=== PATIENT | male | born 1970 | race Caucasian/White ===

== ENCOUNTER 2017-01-30 12:36 | Emergency (ER) | payer MEDICAID ==
[2017-01-30] MEDS ORDERED: CIPROFLOXACIN 250 MG TABLET PO STA (12:56)
[2017-01-30] MEDS ORDERED: CIPROFLOXACIN 250 MG TABLET PO ONE (13:00)
== END 2017-01-30 13:18 | disposition home or self-care (01) ==
DX: L97.319 Non-pressure chronic ulcer of right ankle with unspecified severity (principal); L97.519 Non-pressure chronic ulcer of other part of right foot with unspecified severity; F17.200 Nicotine dependence, unspecified, uncomplicated
CPT/HCPCS: 87070; 87077; 87181; 87205; 99283; A9270

== ENCOUNTER 2017-02-01 23:40 | Emergency (ER) | payer MEDICAID ==
[2017-02-02] MEDS ORDERED: MUPIROCIN 2% OINT 1 GM TOP STA (01:07)
[2017-02-02] MEDS ORDERED: HYDROcod/ACETAM 5/325 MG TABLET PO STA (01:07)
[2017-02-02] MEDS ORDERED: CEPHALEXIN 250 MG CAPSULE PO STA (01:07)
[2017-02-02] MEDS ORDERED: HYDROcod/ACET 5/325 Prepack 6 PO ONE ×2 (01:08→01:10)
[2017-02-02] MEDS ORDERED: CEPHALEXIN 250 MG CAPSULE PO ONE (01:10)
== END 2017-02-02 02:01 | disposition home or self-care (01) ==
DX: L03.115 Cellulitis of right lower limb (principal); L97.511 Non-pressure chronic ulcer of other part of right foot limited to breakdown of skin; F17.200 Nicotine dependence, unspecified, uncomplicated
CPT/HCPCS: 99283; A9270

== ENCOUNTER 2017-02-24 13:02 | Outpatient (CLI) | payer MEDICAID | END 2017-02-24 13:03 | disposition short-term general hospital (02) | DX: K92.0 Hematemesis (principal); K62.5 Hemorrhage of anus and rectum; R10.9 Unspecified abdominal pain; R53.1 Weakness | CPT/HCPCS: A0170; A0425; A0427 ==

== ENCOUNTER 2017-03-06 08:00 | Outpatient (CLI) | payer MEDICAID | END 2017-03-06 08:01 | DX: I82.621 Acute embolism and thrombosis of deep veins of right upper extremity (principal); D62 Acute posthemorrhagic anemia ==

== ENCOUNTER 2017-03-11 08:00 | Outpatient (CLI) | payer MEDICAID | END 2017-03-11 08:01 | disposition home or self-care (01) | DX: I82.90 Acute embolism and thrombosis of unspecified vein (principal); Z79.01 Long term (current) use of anticoagulants ==

== ENCOUNTER 2017-03-13 15:02 | Outpatient (CLI) | payer MEDICAID | END 2017-03-13 15:03 | disposition home or self-care (01) | DX: I82.90 Acute embolism and thrombosis of unspecified vein (principal); Z79.01 Long term (current) use of anticoagulants ==

== ENCOUNTER 2017-03-18 11:54 | Outpatient (CLI) | payer MEDICAID | END 2017-03-18 11:55 | disposition home or self-care (01) | DX: I82.90 Acute embolism and thrombosis of unspecified vein (principal); Z79.01 Long term (current) use of anticoagulants ==

== ENCOUNTER 2017-03-20 15:20 | Outpatient (CLI) | payer MEDICAID | END 2017-03-20 15:21 | disposition home or self-care (01) | DX: I82.90 Acute embolism and thrombosis of unspecified vein (principal); Z79.01 Long term (current) use of anticoagulants ==

== ENCOUNTER 2017-03-25 12:42 | Outpatient (CLI) | payer MEDICAID | END 2017-03-25 12:43 | disposition home or self-care (01) | LOC: LAB.S 12:42 | PROVIDERS: ATTEND Nurse Practitioner Family | DX: I82.90 Acute embolism and thrombosis of unspecified vein (principal); Z79.01 Long term (current) use of anticoagulants | CPT/HCPCS: 85610 ==

== ENCOUNTER 2017-03-29 14:40 | Outpatient (CLI) | payer MEDICAID | END 2017-03-29 14:41 | disposition home or self-care (01) | LOC: LAB.F 14:40 | PROVIDERS: ATTEND Nurse Practitioner Family | DX: I82.90 Acute embolism and thrombosis of unspecified vein (principal); Z79.01 Long term (current) use of anticoagulants | CPT/HCPCS: 85610 ==

== ENCOUNTER 2017-04-02 12:32 | Outpatient (CLI) | payer MEDICAID | END 2017-04-02 12:33 | disposition home or self-care (01) | LOC: LAB.F 12:32 | PROVIDERS: ATTEND Nurse Practitioner Family | DX: I82.90 Acute embolism and thrombosis of unspecified vein (principal) | CPT/HCPCS: 85610 ==

== ENCOUNTER 2017-04-12 14:25 | Outpatient (CLI) | payer MEDICAID | END 2017-04-12 14:26 | disposition home or self-care (01) | DX: I82.90 Acute embolism and thrombosis of unspecified vein (principal) ==

== ENCOUNTER 2017-04-18 08:00 | Outpatient (CLI) | payer MEDICAID | END 2017-04-18 08:01 | disposition home or self-care (01) | LOC: LAB.F 08:00 | PROVIDERS: ATTEND Nurse Practitioner Family | DX: I82.90 Acute embolism and thrombosis of unspecified vein (principal) | CPT/HCPCS: 85610 ==

== ENCOUNTER 2017-04-26 12:59 | Outpatient (CLI) | payer MEDICAID | END 2017-04-26 13:00 | disposition home or self-care (01) | LOC: LAB.F 12:59 | PROVIDERS: ATTEND Nurse Practitioner Family | DX: I82.90 Acute embolism and thrombosis of unspecified vein (principal) | CPT/HCPCS: 85610 ==

== ENCOUNTER 2017-05-03 08:00 | Outpatient (CLI) | payer MEDICAID | END 2017-05-03 08:01 | disposition home or self-care (01) | LOC: LAB.F 08:00 | PROVIDERS: ATTEND Nurse Practitioner Family | DX: I82.90 Acute embolism and thrombosis of unspecified vein (principal) | CPT/HCPCS: 85610 ==

== ENCOUNTER 2017-05-30 14:54 | Outpatient (CLI) | payer MEDICAID | END 2017-05-30 14:55 | disposition home or self-care (01) | LOC: LAB.F 14:54 | PROVIDERS: ATTEND Nurse Practitioner Family | DX: I82.90 Acute embolism and thrombosis of unspecified vein (principal) | CPT/HCPCS: 85610 ==

== ENCOUNTER 2017-06-26 08:00 | Outpatient (CLI) | payer MEDICAID | END 2017-06-26 23:59 | disposition home or self-care (01) | LOC: LAB.F 08:00 | PROVIDERS: ATTEND Nurse Practitioner Family | DX: I82.90 Acute embolism and thrombosis of unspecified vein (principal); Z79.01 Long term (current) use of anticoagulants | CPT/HCPCS: 85610 ==

== ENCOUNTER 2017-07-19 10:10 | Outpatient (CLI) | payer MEDICAID | END 2017-07-19 10:11 | disposition home or self-care (01) | LOC: LAB.F 10:10 | PROVIDERS: ATTEND Nurse Practitioner Family | DX: I82.90 Acute embolism and thrombosis of unspecified vein (principal); Z79.01 Long term (current) use of anticoagulants | CPT/HCPCS: 85610 ==

== ENCOUNTER 2017-08-22 08:00 | Outpatient (CLI) | payer MEDICAID | END 2017-08-22 08:01 | LOC: LAB.F 08:00 | PROVIDERS: ATTEND Nurse Practitioner Family | DX: I82.90 Acute embolism and thrombosis of unspecified vein (principal); Z79.01 Long term (current) use of anticoagulants | CPT/HCPCS: 85610 ==

== ENCOUNTER 2017-09-06 13:37 | Outpatient (CLI) | payer MEDICAID | END 2017-09-06 13:38 | disposition home or self-care (01) | LOC: LAB.F 13:37 | PROVIDERS: ATTEND Nurse Practitioner Family | DX: I82.90 Acute embolism and thrombosis of unspecified vein (principal); Z79.01 Long term (current) use of anticoagulants | CPT/HCPCS: 85610 ==

== ENCOUNTER 2017-09-21 16:14 | Outpatient (CLI) | payer MEDICAID ==
--- NOTE | 2017-09-21 20:13 | Ultrasound Report ---
EXAM: BILATERAL LOWER EXTREMITY VENOUS ULTRASOUND EXAM DATE: 09/21/2017 05:38 p.m. CLINICAL HISTORY: Bilateral lower extremity edema. COMPARISON: None. TECHNIQUE: Real-time sonographic vascular imaging was performed by the fish bin tender through the lower extremities utilizing both color-flow and Doppler spectral analysis. Multiple sales representative girls' apparel static i mages were saved for review. FINDINGS: Right: Common Femoral Vein (CFV): Normal. CFV-GSV Junction: Normal. Profunda Femoral Vein (PFV): Normal. Femoral Vein (FV) Prox: Normal. Femoral Vein (FV) Mid: Normal. Femoral Vein (FV) Dist: Normal. Popliteal Vein: Normal. Posterior Tibial Veins: Limited visualization. Peroneal Veins: Limited visualization. Left: Common Femoral Vein (CFV): Normal. CFV-GSV Junction: Normal. Profunda Femoral Vein (PFV): Normal. Femoral Vein (FV) Prox: Normal. Femoral Vein (FV) Mid: Normal. Femoral Vein (FV) Dist: Normal. Popliteal Vein: Normal. Posterior Tibial Veins: Limited visualization. Peroneal Veins: Limited visualization. Other: Prominent inguinal lymph nodes bilaterally. IMPRESSION: No evidence for deep venous thrombosis bilaterally. [facility] Referring Provider Line: [phone] SITE ID: [id number]
== END 2017-09-21 16:15 | disposition home or self-care (01) ==
LOC: DI 16:14
PROVIDERS: ATTEND Nurse Practitioner Family
DX: R60.0 Localized edema (principal); Z86.718 Personal history of other venous thrombosis and embolism
CPT/HCPCS: 93970

== ENCOUNTER 2018-09-18 16:18 | Emergency (ER) | payer MEDICAID ==
--- NOTE | 2018-09-18 17:03 | ED Physician Documentation ---
History of Present Illness - Stated complaint Stated Complaint: LT LEG PX - Chief complaint Chief Complaint: Wound - History obtained from History obtained from: Patient - History of Present Illness Timing: How many weeks ago (several weeks) Pain level max: 0 Pain level now: 0 Improved by: nothing Worsened by: nothing - Additonal information Additional information: 48-year-old male with a left lower extremity wound for the past several weeks, states open and draining more today. He is not a diabetic. Denies any fevers. States his leg is more red than usual. Does have peripheral vascular disease. Is not currently taking any medications. Review of Systems Constitutional: denies: Fever, Chills GI: denies: Vomiting Skin: denies: Rash Musculoskeletal: denies: Neck pain, Back pain PD PAST MEDICAL HISTORY - Past Medical History Cardiovascular: None Respiratory: None Endocrine/Autoimmune: None GI: None : None HEENT: None Psych: None Musculoskeletal: None Derm: None - Past Surgical History Past Surgical History: Yes General: Other Ortho: Other - Present Medications Home Medications: Ambulatory Orders Medication Instructions Recorded Confirmed Ciprofloxacin HCl [Cipro] 500 mg PO BID #20 tablet 01/30/17 Cephalexin [Keflex] 500 mg PO QID #24 capsule 02/02/17 Hydrocodone/Acetaminophen [[place] 1 each PO Q6H PRN #15 tablet 02/02/17 5-325 Tablet] Mupirocin 1 applic TP TID #15 oint...g. 02/02/17 Cephalexin [Keflex] 500 mg PO Q6H #40 capsule 09/18/18 Sulfamethox/Trimeth 800/160 1 each PO BID #20 tablet 09/18/18 [Bactrim Ds 800/160] - Allergies Allergies/Adverse Reactions: Allergies Allergy/AdvReac Type Severity Reaction Status Date / Time No Known Drug Allergies Allergy Verified 01/30/17 12:41 - Social History Does the pt smoke?: Yes Smoking Status: Current every day smoker Does the pt drink ETOH?: Yes Does the pt have substance abuse?: Yes - Immunizations Immunizations are current?: Yes - POLST Patient has POLST: No PD ED PE NORMAL - Vitals Vital signs reviewed: Yes - General General: Alert and oriented X 3, No acute distress - HEENT HEENT: Moist mucous membranes - Neck Neck: Supple, no meningeal sign - Cardiac Cardiac: RRR, Strong equal pulses - Respiratory Respiratory: No respiratory distress, Clear bilaterally - Abdomen Abdomen: Soft, Non tender, Non distended - Derm Derm: Warm and dry - Extremities Extremities: Other (LLE - 1 cm, round open wound to the mid anterior george. Slight purulent drainage. There is approximately 5 x 4 cm area of erythema and warmth.) - Neuro Neuro: Alert and oriented X 3 - Psych Psych: Normal mood, Normal affect Results - Vitals Vitals: Vital Signs - 24 hr 09/18/18 09/18/18 16:28 18:05 Temperature 36.5 C 36.6 C Heart Rate 95 78 Respiratory 18 20 Rate Blood Pressure 146/92 H 111/72 O2 Saturation 99 100 Oxygen O2 Source Room air - Labs Labs: Microbiology 09/18/18 17:10 Wound Culture - Preliminary Left Lower Extremity - Wound Laboratory Tests 09/18/18 09/18/18 09/18/18 17:10 17:10 17:10 WBC 7.2 RBC 4.45 L Hgb 13.6 L Hct 39.1 L MCV 88.0 MCH 30.5 MCHC 34.7 RDW 14.0 Plt Count 400 MPV 8.5 Neut # (Auto) 4.7 Lymph # (Auto) 1.6 [place] # (Auto) 0.5 Eos # (Auto) 0.3 Baso # (Auto) 0.1 Absolute Nucleated RBC 0.00 Nucleated RBC % 0.0 ESR 10 Sodium 137 Potassium 3.8 Chloride 102 Carbon Dioxide 26 Anion Gap 9.0 BUN 18 Creatinine 1.0 Estimated GFR (MDRD) 80 L Glucose 99 Calcium 8.8 Total Bilirubin 0.5 AST 25 ALT 23 Alkaline Phosphatase 49 C-Reactive Protein Total Protein 7.0 Albumin 3.9 Globulin 3.1 Albumin/Globulin Ratio 1.3 Lipase 32 09/18/18 17:10 WBC RBC Hgb Hct MCV MCH MCHC RDW Plt Count MPV Neut # (Auto) Lymph # (Auto) [place] # (Auto) Eos # (Auto) Baso # (Auto) Absolute Nucleated RBC Nucleated RBC % ESR Sodium Potassium Chloride Carbon Dioxide Anion Gap BUN Creatinine Estimated GFR (MDRD) Glucose Calcium Total Bilirubin AST ALT Alkaline Phosphatase C-Reactive Protein < 1.0 Total Protein Albumin Globulin Albumin/Globulin Ratio Lipase - Rads (name of study) Left tib-fib Radiology: Prelim report reviewed, EMP read contemporaneously, See rad report (Normal) PD MEDICAL DECISION MAKING - ED course Complexity details: reviewed results, re-evaluated patient, considered differential, d/w patient ED course: 48-year-old male with an open wound to the left anterior tibia. No evidence of osteomyelitis on x-ray. No evidence of sepsis on blood work. Will place on antibiotics and follow-up closely with his doctor. Wound was covered and dressed in the emergency department as well. Patient counseled regarding signs and symptoms for which I believe and urgent re-evaluation would be necessary. Patient with good understanding of and agreement to plan and is comfortable going home at this time This document was made in part using voice recognition software. While efforts are made to proofread this document, sound alike and grammatical errors may occur. Departure - Departure Disposition: 01 Home, Self Care Clinical Impression: Cellulitis Qualifiers: Site of cellulitis: extremity Site of cellulitis of extremity: lower extremity Laterality: left Qualified Code(s): L03.116 - Cellulitis of left lower limb Condition: Good Instructions: ED Infec Skin Cellulitis, ED Wound Care Follow-Up: your,doctor in 1 week for wound check [Other] Prescriptions: Cephalexin [Keflex] 500 mg PO Q6H #40 capsule Sulfamethox/Trimeth 800/160 [Bactrim Ds 800/160] 1 each PO BID #20 tablet Comments: Return if you worsen. Take all antibiotics until gone. Keep the wound clean. Change the dressings at least daily. You can also apply topical antibiotic ointment. You need to follow-up closely with your doctor for wound care and wound checks. Discharge Date/Time: 09/18/18 18:29
[2018-09-18 17:16] LABS: BASOPHILS # (AUTO) 0.1 10^3/uL (0.0-0.1); EOSINOPHILS # (AUTO) 0.3 10^3/uL (0.0-0.7); EOSINOPHILS % (AUTO) 4.4 %; HGB - HEMOGLOBIN 13.6 g/dL (14.0-18.0); LYMPHOCYTES # (AUTO) 1.6 10^3/uL (1.5-3.5); LYMPHOCYTES % (AUTO) 22.3 %; MEAN CORPUSCULAR HEMOGLOBIN 30.5 pg (27.0-31.0); MEAN CORPUSCULAR HGB CONC 34.7 g/dL (32.0-36.0); MEAN PLATELET VOLUME 8.5 fL (7.4-11.4); MONOCYTES # (AUTO) 0.5 10^3/uL (0.0-1.0); MONOCYTES % (AUTO) 7.2 %; NEUTROPHILS # (AUTO) 4.7 10^3/uL (1.5-6.6); NEUTROPHILS % (AUTO) 65.1 %; PLT - PLATELET COUNT 400 10^3/uL (130-450); RED BLOOD COUNT 4.45 10^6/uL (4.70-6.10); WHITE BLOOD COUNT 7.2 x10^3/uL (4.8-10.8)
[2018-09-18 17:35] LABS: ALBUMIN 3.9 g/dL (3.2-5.5); ALBUMIN/GLOBULIN RATIO 1.3 (1.0-2.2); BILIRUBIN,TOTAL 0.5 mg/dL (0.2-1.0); CALCIUM 8.8 mg/dL (8.5-10.3)
[2018-09-18] MEDS ORDERED: cefTRIAXone 1 GM VIAL IVP STA (17:43)
[2018-09-18] MEDS ORDERED: SULFAMETH/TRIMETH DS 800/160 MG TABLET PO STA (17:43)
--- NOTE | 2018-09-18 17:48 | XRAY Report ---
Reason: open wound x several weeks mid tibia Procedure Date: 09/18/2018 Accession Number: [id number] / [id number] Procedure: XR - Tib/Fib LT CPT Code: FULL RESULT: EXAM: LEFT TIBIA/FIBULA RADIOGRAPHY EXAM DATE: 09/18/2018 05:19 PM. CLINICAL HISTORY: Open wound x several weeks mid tibia. COMPARISON: None. TECHNIQUE: 2 views. FINDINGS: Bones: Normal. No fracture or bone lesion. Joints: The visualized knee and ankle joints are normal. No effusions. Soft Tissues: Normal. No soft tissue swelling. IMPRESSION: Normal tibia/fibula radiography. [facility]
[2018-09-18 18:07] VITALS: BP 111/72
== END 2018-09-18 18:29 | disposition home or self-care (01) ==
LOC: ED 16:18
DX: L03.116 Cellulitis of left lower limb (principal); F17.200 Nicotine dependence, unspecified, uncomplicated
CPT/HCPCS: 36415; 73590; 80053; 83690; 85025; 85651; 86140; 87070; 87181; 87205; 96374; 99283; A9270

== ENCOUNTER 2018-12-30 08:00 | Outpatient (CLI) | payer MEDICAID | END 2018-12-30 23:59 | disposition home or self-care (01) | LOC: LAB.F 08:00 | PROVIDERS: ATTEND Internal Medicine | DX: Z79.01 Long term (current) use of anticoagulants (principal); Z86.718 Personal history of other venous thrombosis and embolism | CPT/HCPCS: 85610 ==

== ENCOUNTER 2019-01-02 08:46 | Outpatient (CLI) | payer MEDICAID | END 2019-01-02 08:47 | disposition home or self-care (01) | LOC: LAB.F 08:46 | PROVIDERS: ATTEND Internal Medicine | DX: Z79.01 Long term (current) use of anticoagulants (principal); Z86.718 Personal history of other venous thrombosis and embolism | CPT/HCPCS: 85610 ==

== ENCOUNTER 2019-01-06 09:57 | Outpatient (CLI) | payer MEDICAID | END 2019-01-06 09:58 | disposition home or self-care (01) | LOC: LAB.F 09:57 | PROVIDERS: ATTEND Internal Medicine | DX: Z86.718 Personal history of other venous thrombosis and embolism (principal); Z79.01 Long term (current) use of anticoagulants | CPT/HCPCS: 85610 ==

== ENCOUNTER 2019-01-08 11:40 | Outpatient (CLI) | payer MEDICAID | END 2019-01-08 11:41 | disposition home or self-care (01) | LOC: LAB.F 11:40 | PROVIDERS: ATTEND Internal Medicine | DX: Z86.718 Personal history of other venous thrombosis and embolism (principal); Z79.01 Long term (current) use of anticoagulants | CPT/HCPCS: 85610 ==

== ENCOUNTER 2019-01-14 15:07 | Outpatient (CLI) | payer MEDICAID | END 2019-01-14 15:08 | disposition home or self-care (01) | LOC: LAB.F 15:07 | PROVIDERS: ATTEND Internal Medicine | DX: Z51.81 Encounter for therapeutic drug level monitoring (principal); Z79.01 Long term (current) use of anticoagulants; Z86.718 Personal history of other venous thrombosis and embolism | CPT/HCPCS: 85610 ==

== ENCOUNTER 2019-01-20 08:00 | Outpatient (CLI) | payer MEDICAID | END 2019-01-20 23:59 | disposition home or self-care (01) | LOC: LAB.F 08:00 | PROVIDERS: ATTEND Internal Medicine | DX: Z51.81 Encounter for therapeutic drug level monitoring (principal); Z79.01 Long term (current) use of anticoagulants; Z86.718 Personal history of other venous thrombosis and embolism | CPT/HCPCS: 85610 ==

== ENCOUNTER 2019-01-29 12:06 | Outpatient (CLI) | payer MEDICAID | END 2019-01-29 12:07 | disposition home or self-care (01) | LOC: LAB 12:06 | PROVIDERS: ATTEND Internal Medicine | DX: Z51.81 Encounter for therapeutic drug level monitoring (principal); Z79.01 Long term (current) use of anticoagulants; Z86.718 Personal history of other venous thrombosis and embolism | CPT/HCPCS: 85610 ==

== ENCOUNTER 2019-02-05 12:51 | Outpatient (CLI) | payer MEDICAID | END 2019-02-05 12:52 | disposition home or self-care (01) | LOC: LAB.F 12:51 | PROVIDERS: ATTEND Internal Medicine | DX: Z86.718 Personal history of other venous thrombosis and embolism (principal); Z79.01 Long term (current) use of anticoagulants | CPT/HCPCS: 85610 ==

== ENCOUNTER 2019-02-12 15:59 | Outpatient (CLI) | payer MEDICAID | END 2019-02-12 23:59 | disposition home or self-care (01) | LOC: LAB.F 15:59 | PROVIDERS: ATTEND Internal Medicine | DX: Z79.01 Long term (current) use of anticoagulants (principal); Z86.718 Personal history of other venous thrombosis and embolism | CPT/HCPCS: 85610 ==

== ENCOUNTER 2019-02-25 11:22 | Outpatient (CLI) | payer MEDICAID | END 2019-02-25 11:23 | disposition home or self-care (01) | LOC: LAB.F 11:22 | PROVIDERS: ATTEND Internal Medicine | DX: Z79.01 Long term (current) use of anticoagulants (principal); Z86.718 Personal history of other venous thrombosis and embolism | CPT/HCPCS: 85610 ==

== ENCOUNTER 2019-03-04 13:13 | Outpatient (CLI) | payer MEDICAID | END 2019-03-04 13:14 | disposition home or self-care (01) | LOC: LAB.F 13:13 | PROVIDERS: ATTEND Internal Medicine | DX: Z86.718 Personal history of other venous thrombosis and embolism (principal); Z79.01 Long term (current) use of anticoagulants | CPT/HCPCS: 85610 ==

== ENCOUNTER 2019-04-01 14:52 | Outpatient (CLI) | payer MEDICAID | END 2019-04-01 23:59 | disposition home or self-care (01) | LOC: LAB.F 14:52 | PROVIDERS: ATTEND Internal Medicine | DX: Z86.718 Personal history of other venous thrombosis and embolism (principal); Z79.01 Long term (current) use of anticoagulants | CPT/HCPCS: 85610 ==

== ENCOUNTER 2019-05-20 15:44 | Outpatient (CLI) | payer MEDICAID | END 2019-05-20 15:45 | disposition home or self-care (01) | LOC: LAB.S 15:44 | PROVIDERS: ATTEND Internal Medicine | DX: Z86.718 Personal history of other venous thrombosis and embolism (principal); Z79.01 Long term (current) use of anticoagulants | CPT/HCPCS: 85610 ==

== ENCOUNTER 2019-06-01 12:07 | Outpatient (CLI) | payer MEDICAID | END 2019-06-01 12:08 | disposition home or self-care (01) | LOC: LAB.S 12:07 | PROVIDERS: ATTEND Internal Medicine | DX: Z86.718 Personal history of other venous thrombosis and embolism (principal); Z79.01 Long term (current) use of anticoagulants | CPT/HCPCS: 85610 ==

== ENCOUNTER 2019-06-10 15:21 | Outpatient (CLI) | payer MEDICAID | END 2019-06-10 15:22 | disposition home or self-care (01) | LOC: LAB.S 15:21 | PROVIDERS: ATTEND Internal Medicine | DX: Z86.718 Personal history of other venous thrombosis and embolism (principal); Z79.01 Long term (current) use of anticoagulants | CPT/HCPCS: 85610 ==

== ENCOUNTER 2019-06-16 10:36 | Outpatient (CLI) | payer MEDICAID | END 2019-06-16 10:37 | disposition home or self-care (01) | LOC: LAB.S 10:36 | PROVIDERS: ATTEND Internal Medicine | DX: Z79.01 Long term (current) use of anticoagulants (principal); Z86.718 Personal history of other venous thrombosis and embolism | CPT/HCPCS: 85610 ==

== ENCOUNTER 2019-07-02 16:05 | Outpatient (CLI) | payer MEDICAID | END 2019-07-02 16:06 | disposition home or self-care (01) | LOC: LAB 16:05 | PROVIDERS: ATTEND Internal Medicine | DX: Z79.01 Long term (current) use of anticoagulants (principal); Z86.718 Personal history of other venous thrombosis and embolism | CPT/HCPCS: 85610 ==

== ENCOUNTER 2019-09-18 13:15 | Outpatient (CLI) | payer MEDICAID | END 2019-09-18 13:16 | disposition home or self-care (01) | LOC: LAB.S 13:15 | PROVIDERS: ATTEND Internal Medicine | DX: Z79.01 Long term (current) use of anticoagulants (principal); Z86.718 Personal history of other venous thrombosis and embolism | CPT/HCPCS: 85610 ==

== ENCOUNTER 2019-10-22 14:22 | Outpatient (CLI) | payer MEDICAID | END 2019-10-22 14:23 | disposition home or self-care (01) | LOC: LAB.S 14:22 | PROVIDERS: ATTEND Internal Medicine | DX: Z86.718 Personal history of other venous thrombosis and embolism (principal); Z79.01 Long term (current) use of anticoagulants | CPT/HCPCS: 85610 ==

== ENCOUNTER 2019-12-17 13:05 | Outpatient (CLI) | payer MEDICAID | END 2019-12-17 13:06 | disposition home or self-care (01) | LOC: LAB.S 13:05 | PROVIDERS: ATTEND Registered Nurse | DX: Z79.01 Long term (current) use of anticoagulants (principal); Z86.718 Personal history of other venous thrombosis and embolism | CPT/HCPCS: 85610 ==

== ENCOUNTER 2020-07-06 17:35 | Outpatient (CLI) | payer MEDICAID | END 2020-07-06 17:36 | disposition home or self-care (01) | LOC: LAB.S 17:35 | PROVIDERS: ATTEND Registered Nurse | DX: Z86.718 Personal history of other venous thrombosis and embolism (principal); Z79.01 Long term (current) use of anticoagulants | CPT/HCPCS: 85610 ==

== ENCOUNTER 2020-07-08 16:41 | Outpatient (CLI) | payer MEDICAID | END 2020-07-08 16:42 | disposition home or self-care (01) | LOC: LAB.S 16:41 | PROVIDERS: ATTEND Registered Nurse | DX: Z86.718 Personal history of other venous thrombosis and embolism (principal); Z79.01 Long term (current) use of anticoagulants | CPT/HCPCS: 85610 ==

== ENCOUNTER 2020-07-11 15:18 | Outpatient (CLI) | payer MEDICAID | END 2020-07-11 15:19 | disposition home or self-care (01) | LOC: LAB.S 15:18 | PROVIDERS: ATTEND Registered Nurse | DX: Z86.718 Personal history of other venous thrombosis and embolism (principal); Z79.01 Long term (current) use of anticoagulants | CPT/HCPCS: 85610 ==

== ENCOUNTER 2020-07-19 12:14 | Outpatient (CLI) | payer MEDICAID | END 2020-07-19 12:15 | disposition home or self-care (01) | LOC: LAB.S 12:14 | PROVIDERS: ATTEND Registered Nurse | DX: Z79.01 Long term (current) use of anticoagulants (principal); Z86.718 Personal history of other venous thrombosis and embolism | CPT/HCPCS: 85610 ==

== ENCOUNTER 2020-10-07 14:42 | Outpatient (CLI) | payer MEDICAID | END 2020-10-07 14:43 | disposition home or self-care (01) | LOC: LAB.S 14:42 | PROVIDERS: ATTEND Registered Nurse | DX: I83.10 Varicose veins of unspecified lower extremity with inflammation (principal); I82.409 Acute embolism and thrombosis of unspecified deep veins of unspecified lower extremity; Z79.01 Long term (current) use of anticoagulants; Z86.718 Personal history of other venous thrombosis and embolism; Z79.899 Other long term (current) drug therapy; L03.116 Cellulitis of left lower limb | CPT/HCPCS: 85610 ==

== ENCOUNTER 2020-11-16 16:41 | Outpatient (CLI) | payer MEDICAID | END 2020-11-16 16:42 | disposition home or self-care (01) | LOC: LAB.S 16:41 | PROVIDERS: ATTEND Physician Assistant | DX: Z79.01 Long term (current) use of anticoagulants (principal); Z86.718 Personal history of other venous thrombosis and embolism | CPT/HCPCS: 85610 ==

== ENCOUNTER 2020-11-30 10:37 | Outpatient (CLI) | payer MEDICAID | END 2020-11-30 10:38 | disposition home or self-care (01) | LOC: LAB.S 10:37 | PROVIDERS: ATTEND Physician Assistant | DX: Z79.899 Other long term (current) drug therapy (principal); Z79.01 Long term (current) use of anticoagulants; L03.116 Cellulitis of left lower limb; I82.409 Acute embolism and thrombosis of unspecified deep veins of unspecified lower extremity; I83.10 Varicose veins of unspecified lower extremity with inflammation; Z86.718 Personal history of other venous thrombosis and embolism | CPT/HCPCS: 85610 ==

== ENCOUNTER 2021-01-19 16:24 | Outpatient (CLI) | payer MEDICAID | END 2021-01-19 16:25 | disposition home or self-care (01) | LOC: LAB.S 16:24 | PROVIDERS: ATTEND Physician Assistant | DX: Z79.01 Long term (current) use of anticoagulants (principal); Z86.718 Personal history of other venous thrombosis and embolism | CPT/HCPCS: 85610 ==

== ENCOUNTER 2021-01-31 18:30 | Outpatient (CLI) | payer MEDICAID | END 2021-01-31 18:31 | disposition home or self-care (01) | LOC: LAB.S 18:30 | PROVIDERS: ATTEND Physician Assistant | DX: Z79.01 Long term (current) use of anticoagulants (principal); Z86.718 Personal history of other venous thrombosis and embolism | CPT/HCPCS: 85610 ==

== ENCOUNTER 2021-02-17 18:18 | Outpatient (CLI) | payer MEDICAID | END 2021-02-17 18:19 | disposition home or self-care (01) | LOC: LAB.S 18:18 | PROVIDERS: ATTEND Physician Assistant | DX: Z79.01 Long term (current) use of anticoagulants (principal) | CPT/HCPCS: 85610 ==

== ENCOUNTER 2021-03-16 15:11 | Outpatient (CLI) | payer MEDICAID | END 2021-03-16 15:12 | disposition home or self-care (01) | LOC: LAB.S 15:11 | PROVIDERS: ATTEND Physician Assistant | DX: Z79.01 Long term (current) use of anticoagulants (principal); Z86.718 Personal history of other venous thrombosis and embolism | CPT/HCPCS: 36416; 85610 ==

== ENCOUNTER 2021-08-30 18:10 | Outpatient (CLI) | payer MEDICAID | END 2021-08-30 18:11 | disposition home or self-care (01) | LOC: LAB.S 18:10 | PROVIDERS: ATTEND Internal Medicine | DX: Z79.01 Long term (current) use of anticoagulants (principal); Z86.718 Personal history of other venous thrombosis and embolism | CPT/HCPCS: 36416; 85610 ==

== ENCOUNTER 2021-10-27 17:07 | Outpatient (CLI) | payer MEDICAID | END 2021-10-27 17:08 | disposition home or self-care (01) | LOC: LAB.S 17:07 | PROVIDERS: ATTEND Internal Medicine | DX: Z79.01 Long term (current) use of anticoagulants (principal); Z86.718 Personal history of other venous thrombosis and embolism | CPT/HCPCS: 36416; 85610 ==

== ENCOUNTER 2021-11-14 16:49 | Emergency (ER) | payer MEDICAID ==
[2021-11-14] MEDS ORDERED: DOXYCYCLINE 100 MG TABLET PO STA (17:47)
[2021-11-14] MEDS ORDERED: BACITRACIN ZINC OINT 1 PACKET TOP STA (17:47)
--- NOTE | 2021-11-14 17:55 | ED Physician Documentation ---
History of Present Illness - Stated complaint Stated Complaint: LT LEG WOUND - Chief complaint Chief Complaint: Wound - Additonal information Additional information: 51-year-old male who has past medical history most significant for peripheral vascular disease presents to the emergency department for concerns of left lower extremity leg infection. He reports that in the past he has been referred to a vascular specialist but due to housing and transportation concerns has been unable to follow-up. For a brief period of time over the last few days he has had to sleep in his car. Because his legs were dependent his left leg got markedly swollen. Once this occurred he began developing some superficial ulcers that have slowly progressed. He is also developed some extending erythema towards the knee. He was out of his Coumadin for about 2 days but this was resumed just a few days ago. He denies any chest pain or shortness of air. No fevers. He is in between primary care providers and is scheduled to establish with Dr. Juarez in December. Former smoker. No alcohol use. Denies any history of diabetes or hypertension. Review of Systems Constitutional: denies: Fever, Chills Throat: reports: Reviewed and negative Cardiac: reports: Reviewed and negative Respiratory: reports: Reviewed and negative GI: reports: Reviewed and negative : reports: Reviewed and negative Skin: reports: Lesions Musculoskeletal: reports: Reviewed and negative Neurologic: reports: Generalized weakness PD PAST MEDICAL HISTORY - Past Medical History Cardiovascular: None Respiratory: None Endocrine/Autoimmune: None GI: None : None HEENT: None Psych: None Musculoskeletal: None Derm: None - Past Surgical History Past Surgical History: Yes General: Other Ortho: Other - Present Medications Home Medications: Ambulatory Orders Medication Instructions Recorded Confirmed Ciprofloxacin HCl [Cipro] 500 mg PO BID #20 tablet 01/30/17 Hydrocodone/Acetaminophen [[place] 1 each PO Q6H PRN #15 tablet 02/02/17 5-325 Tablet] Mupirocin 1 applic TP TID #15 oint...g. 02/02/17 cephALEXin [Keflex] 500 mg PO QID #24 capsule 02/02/17 Sulfamethox/Trimeth 800/160 1 each PO BID #20 tablet 09/18/18 [Bactrim Ds 800/160] cephALEXin [Keflex] 500 mg PO Q6H #40 capsule 09/18/18 Doxycycline Hyclate 100 mg PO BID #20 cap 11/14/21 Mupirocin 2% Oint [Bactroban 2% 1 applic TOP BID #22 gm 11/14/21 Oint] - Allergies Allergies/Adverse Reactions: Allergies Allergy/AdvReac Type Severity Reaction Status Date / Time No Known Drug Allergies Allergy Verified 11/14/21 17:23 - Social History Does the pt smoke?: Yes Smoking Status: Current every day smoker Does the pt drink ETOH?: Yes Does the pt have substance abuse?: Yes - Immunizations Immunizations are current?: Yes - POLST Patient has POLST: No PD ED PE EXPANDED - General General: Alert, No acute distress, Well developed/nourished - Cardiac Cardiac: Regular Rate, Radial strong equal, Pedal strong equal, Cap refill < 2 sec. No: Murmur Present - Respiratory Respiratory: Clear to ausultation angelic. No: Distress, Labored - Extremities Extremities: Left leg (Chronic skin changes and hemosiderin staining. He does have some superficial ulcerations on the medial left leg superior to the ankle. There is moderate amount of serous drainage. No fluctuance noted. Some superficial erythema and induration extending above the chronic skin changes. ), Pedal Pulses Present. No: Left calf TTP/cord Results - Vitals Vitals: Vital Signs - 24 hr 11/14/21 17:15 Temperature 36.0 C L Heart Rate 110 H Respiratory 20 Rate Blood Pressure 132/97 H O2 Saturation 97 Oxygen O2 Source Room air PD MEDICAL DECISION MAKING - ED course Complexity details: reviewed results, re-evaluated patient, considered differential, d/w patient ED course: 51-year-old male who has a history of peripheral vascular disease as well as previous deep vein thrombosis in the left leg presents the emergency department for evaluation what he believes is a new skin infection that has developed after his legs were in the dependent state while he was residing in his car for a few days. He has subsequently found housing in a trailer and has been able to elevate the legs but the erythema which is no has not reduced. Clinically he does have findings of new cellulitis above his chronic peripheral vascular disease. He also has multiple superficial ulcerations that he reports are new. It is likely that he will require wound consult moving forward and I have advised him to follow-up at one of the local outpatient clinics to obtain this referral before he is able to see Dr. Juarez in December. Patient will be started on doxycycline. We discussed routine and care management until he is able to be seen by wound therapy. He is to continue his warfarin for his previous history of DVT. He is advised to have his INR checked more frequently during the course of his antibiotic therapy. Emergent return precautions were discussed for concerns of worsening in infection despite wound care and antibiotics. Departure - Departure Disposition: 01 Home, Self Care Clinical Impression: Left leg cellulitis, PVD (peripheral vascular disease), Inflammation of left lower leg concurrent with and due to varicose ulcer Condition: Stable Record reviewed to determine appropriate education?: Yes Follow-Up: Elie Juarez MD [Primary Care Provider] - Prescriptions: Mupirocin 2% Oint [Bactroban 2% Oint] 1 applic TOP BID #22 gm Doxycycline Hyclate 100 mg PO BID #20 cap Comments: [facility] you are seen in the emergency department today for ulcerations and infection that have developed on your left lower leg. Please try and elevate your leg is much as possible at night to help reduce swelling and edema. Please wash your wounds with warm soap and water once daily, apply the antibiotic ointment and then the bandages. Prescription for doxycycline has been sent to the [facility] in [place]. Because you are on Coumadin it can cause your INR levels to be elevated. It is important that you check your INR more frequently while on the doxycycline. I do recommend that you get it checked in 48 hours time. The ulcerations in your leg are chronic and will require many months to heal. I think you would benefit from a wound therapy referral. This needs to be obtained through her primary care provider and/or one of the walk-in clinics can help with this. If despite the antibiotics and wound care you are having increased swelling, pain, fevers then please return to the ER for a second evaluation.
[2021-11-14 18:22] VITALS: BP 115/69
== END 2021-11-14 18:21 | disposition home or self-care (01) ==
LOC: ED 16:49
DX: L03.116 Cellulitis of left lower limb (principal); I83.228 Varicose veins of left lower extremity with both ulcer of other part of lower extremity and inflammation; L97.829 Non-pressure chronic ulcer of other part of left lower leg with unspecified severity; I73.9 Peripheral vascular disease, unspecified; Z87.891 Personal history of nicotine dependence
CPT/HCPCS: 99282; 99283; A9270

== ENCOUNTER 2022-03-20 18:28 | Outpatient (CLI) | payer MEDICAID | END 2022-03-20 18:29 | disposition home or self-care (01) | LOC: LAB.S 18:28 | PROVIDERS: ATTEND Registered Nurse | DX: Z79.01 Long term (current) use of anticoagulants (principal); Z86.718 Personal history of other venous thrombosis and embolism | CPT/HCPCS: 36416; 85610 ==

== ENCOUNTER 2022-04-26 12:37 | Outpatient (CLI) | payer MEDICAID | END 2022-04-26 12:38 | disposition home or self-care (01) | LOC: LAB.S 12:37 | PROVIDERS: ATTEND Registered Nurse | DX: Z79.01 Long term (current) use of anticoagulants (principal); Z86.718 Personal history of other venous thrombosis and embolism | CPT/HCPCS: 36416; 85610 ==

== ENCOUNTER 2022-09-03 12:46 | Outpatient (CLI) | payer MEDICAID, OTHER | END 2022-09-03 12:47 | disposition home or self-care (01) | LOC: LAB.S 12:46 | PROVIDERS: ATTEND Registered Nurse | DX: Z79.01 Long term (current) use of anticoagulants (principal); Z86.718 Personal history of other venous thrombosis and embolism | CPT/HCPCS: 36416; 85610 ==

== ENCOUNTER 2022-09-11 12:56 | Outpatient (CLI) | payer OTHER | END 2022-09-11 12:57 | disposition home or self-care (01) | LOC: LAB.S 12:56 | PROVIDERS: ATTEND Nurse Practitioner Adult Health | DX: Z79.01 Long term (current) use of anticoagulants (principal); I82.502 Chronic embolism and thrombosis of unspecified deep veins of left lower extremity | CPT/HCPCS: 36416; 85610 ==

== ENCOUNTER 2022-10-16 13:12 | Outpatient (CLI) | payer OTHER | END 2022-10-16 13:13 | disposition home or self-care (01) | LOC: LAB.S 13:12 | PROVIDERS: ATTEND Internal Medicine | DX: Z79.01 Long term (current) use of anticoagulants (principal); I82.502 Chronic embolism and thrombosis of unspecified deep veins of left lower extremity | CPT/HCPCS: 36416; 85610 ==

== ENCOUNTER 2022-10-18 18:30 | Outpatient (CLI) | payer OTHER | END 2022-10-18 18:31 | disposition home or self-care (01) | LOC: LAB 18:30 | PROVIDERS: ATTEND Nurse Practitioner Adult Health | DX: Z79.01 Long term (current) use of anticoagulants (principal); I82.502 Chronic embolism and thrombosis of unspecified deep veins of left lower extremity | CPT/HCPCS: 36416; 85610 ==

== ENCOUNTER 2022-11-28 14:50 | Outpatient (CLI) | payer OTHER | END 2022-11-28 14:51 | disposition home or self-care (01) | LOC: LAB.S 14:50 | PROVIDERS: ATTEND Nurse Practitioner Adult Health | DX: Z79.01 Long term (current) use of anticoagulants (principal); I82.502 Chronic embolism and thrombosis of unspecified deep veins of left lower extremity | CPT/HCPCS: 36416; 85610 ==

== ENCOUNTER 2022-12-21 15:16 | Outpatient (CLI) | payer OTHER | END 2022-12-21 15:17 | disposition home or self-care (01) | LOC: LAB 15:16 | PROVIDERS: ATTEND Nurse Practitioner Adult Health | DX: Z79.01 Long term (current) use of anticoagulants (principal); I82.502 Chronic embolism and thrombosis of unspecified deep veins of left lower extremity | CPT/HCPCS: 36416; 85610 ==

== ENCOUNTER 2023-01-10 13:44 | Outpatient (CLI) | payer OTHER | END 2023-01-10 13:45 | disposition home or self-care (01) | LOC: LAB.S 13:44 | PROVIDERS: ATTEND Nurse Practitioner Adult Health | DX: Z79.01 Long term (current) use of anticoagulants (principal); I82.502 Chronic embolism and thrombosis of unspecified deep veins of left lower extremity | CPT/HCPCS: 36416; 85610 ==

== ENCOUNTER 2023-01-22 12:49 | Outpatient (CLI) | payer OTHER | END 2023-01-22 12:50 | disposition home or self-care (01) | LOC: LAB.S 12:49 | PROVIDERS: ATTEND Nurse Practitioner Adult Health | DX: Z79.01 Long term (current) use of anticoagulants (principal); I82.502 Chronic embolism and thrombosis of unspecified deep veins of left lower extremity | CPT/HCPCS: 36416; 85610 ==

== ENCOUNTER 2023-01-29 13:24 | Outpatient (CLI) | payer OTHER | END 2023-01-29 13:25 | disposition home or self-care (01) | LOC: LAB.S 13:24 | PROVIDERS: ATTEND Nurse Practitioner Adult Health | DX: Z79.01 Long term (current) use of anticoagulants (principal); I82.502 Chronic embolism and thrombosis of unspecified deep veins of left lower extremity | CPT/HCPCS: 36416; 85610 ==

== ENCOUNTER 2023-03-29 12:55 | Outpatient (CLI) | payer OTHER | END 2023-03-29 12:56 | disposition home or self-care (01) | LOC: LAB.S 12:55 | PROVIDERS: ATTEND Nurse Practitioner Adult Health | DX: Z79.01 Long term (current) use of anticoagulants (principal); I82.502 Chronic embolism and thrombosis of unspecified deep veins of left lower extremity | CPT/HCPCS: 36416; 85610 ==

== ENCOUNTER 2023-04-26 14:09 | Outpatient (CLI) | payer OTHER | END 2023-04-26 14:10 | disposition home or self-care (01) | LOC: LAB.S 14:09 | PROVIDERS: ATTEND Nurse Practitioner Adult Health | DX: Z79.01 Long term (current) use of anticoagulants (principal); I82.502 Chronic embolism and thrombosis of unspecified deep veins of left lower extremity | CPT/HCPCS: 36416; 85610 ==

== ENCOUNTER 2023-06-13 20:54 | Outpatient (CLI) | payer OTHER | END 2023-06-13 20:55 | disposition home or self-care (01) | LOC: LAB 20:54 | PROVIDERS: ATTEND Nurse Practitioner Adult Health | DX: Z79.01 Long term (current) use of anticoagulants (principal); I82.502 Chronic embolism and thrombosis of unspecified deep veins of left lower extremity | CPT/HCPCS: 36416; 85610 ==

== ENCOUNTER 2023-07-02 17:21 | Outpatient (CLI) | payer OTHER | END 2023-07-02 17:22 | disposition home or self-care (01) | LOC: LAB 17:21 | PROVIDERS: ATTEND Registered Nurse | DX: Z79.01 Long term (current) use of anticoagulants (principal); I82.502 Chronic embolism and thrombosis of unspecified deep veins of left lower extremity | CPT/HCPCS: 36416; 85610 ==

== ENCOUNTER 2024-05-07 11:51 | Emergency (ER) | payer MEDICAID, OTHER ==
[2024-05-07 12:36] VITALS: O2SAT 100
--- NOTE | 2024-05-07 13:59 | ED Physician Documentation ---
History of Present Illness - Stated complaint Stated Complaint: GROWING ULCER LT LEG - Chief complaint Chief Complaint: Ext Problem - History obtained from History obtained from: Patient - Additonal information Additional information: 53-year-old male presents with left leg cellulitis. The patient states he has chronic venous stasis and has had same cellulitis in with his legs in the past. He has had some increasing redness in weeping of the skin recently which she has been trying to manage at home with more diligent elevation, and good wound care but he states it has been come more uncomfortable in that area of wound has spread throughout the lower leg with increasing erythema, and some more areas that are open and draining. He states it seemed to worsen after he got into the habit of falling asleep in his truck after work and leaving his leg in a dependent position and not taking off his work boots or the dressings that he were just using during the day. He has changed his lifestyle so that he ensures he elevates the leg after work and does not sleep in the chair. He states he has required antibiotics in the past and thinks that he likely needs antibiotics at this point in time. He has not had a fever, no chills, otherwise feels well. He does have a history of a DVT in that left leg but he is compliant with his anticoagulation. He has not followed up with wound care clinic. Review of Systems Constitutional: reports: Reviewed and negative Eyes: reports: Reviewed and negative Ears: reports: Reviewed and negative Nose: reports: Reviewed and negative Throat: reports: Reviewed and negative Cardiac: reports: Reviewed and negative Respiratory: reports: Reviewed and negative GI: reports: Reviewed and negative : reports: Reviewed and negative Skin: reports: Rash Musculoskeletal: reports: Reviewed and negative Neurologic: reports: Reviewed and negative Psychiatric: reports: Reviewed and negative Endocrine: reports: Reviewed and negative PD PAST MEDICAL HISTORY - Past Medical History Past Medical History: Yes Cardiovascular: None Respiratory: None Endocrine/Autoimmune: None GI: None : None HEENT: None Psych: None Musculoskeletal: None Derm: None - Past Surgical History Past Surgical History: Yes General: Other Ortho: Other - Present Medications Home Medications: Ambulatory Orders Medication Instructions Recorded Confirmed Ciprofloxacin HCl [Cipro] 500 mg PO BID #20 tablet 01/30/17 Hydrocodone/Acetaminophen [[place] 1 each PO Q6H PRN #15 tablet 03/25/17 5-325 Tablet] cephALEXin [Keflex] 500 mg PO QID #24 capsule 02/02/17 Sulfamethox/Trimeth 800/160 1 each PO BID #20 tablet 09/18/18 [Bactrim Ds 800/160] cephALEXin [Keflex] 500 mg PO Q6H #40 capsule 09/18/18 Doxycycline Hyclate 100 mg PO BID #20 cap 11/14/21 Mupirocin 2% Oint [Bactroban 2% 1 applic TOP BID #22 gm 11/14/21 Oint] Mupirocin 2% Oint [Bactroban 2% 1 applic TOP BID #22 gm 11/15/21 Oint] Doxycycline [Vibramycin] 100 mg PO BID #20 tablet 05/07/24 Mupirocin 2% Oint [Bactroban 2% 1 applic TOP BID #50 gm 05/07/24 Oint] cephALEXin [Keflex] 500 mg PO Q6H #28 cap 05/07/24 - Allergies Allergies/Adverse Reactions: Allergies Allergy/AdvReac Type Severity Reaction Status Date / Time No Known Drug Allergies Allergy Verified 05/07/24 12:28 - Social History Does the pt smoke?: Yes Smoking Status: Current every day smoker Does the pt drink ETOH?: Yes Does the pt have substance abuse?: Yes - Immunizations Immunizations are current?: Yes - POLST Patient has POLST: No PD ED PE NORMAL - Vitals Vital signs reviewed: Yes - General General: Alert and oriented X 3, No acute distress, Well developed/nourished - HEENT HEENT: Atraumatic, Moist mucous membranes - Cardiac Cardiac: RRR, No murmur - Respiratory Respiratory: No respiratory distress, Clear bilaterally - Derm Derm: Normal color, Warm and dry, Other (There is venous stasis changes of both legs though well-healed on the right leg. In the left leg he has venous stasis changes with overlying erythema of the entire lower leg to ankle, not involving the foot. He has some areas of open lesions draining serous fluid, his left calf is slightly bigger ) - Extremities Extremities: No calf tenderness / cord Results - Vitals Vitals: Vital Signs - 24 hr 05/07/24 12:23 Temperature 36.5 C Heart Rate 89 Respiratory 20 Rate Blood Pressure 120/78 O2 Saturation 100 Oxygen O2 Source Room air PD Medical Decision Making - ED course Complexity details: considered differential, d/w patient ED course: 53-year-old male who presented with left leg cellulitis. The patient has had cellulitis in the past and also has chronic venous stasis and feels like his symptoms are worsening he may need antibiotics at this time. He is well- appearing here on physical exam, afebrile nontoxic but present large area of open lesion with increasing erythema on the left lower leg concerning for cellulitis superimposed on a chronic venous stasis. I do believe antibiotics are indicated at this time and I will treat with Keflex and doxycycline pending his wound culture. Wound care instructions reviewed with patient, we will place a Xeroform dressing here and he can use nonstick dressing with mupirocin at home. It would probably be beneficial for patient to get into the wound care clinic if possible. In the meantime he should keep clean, keep elevated. He is to return if he develops any worsening symptoms such as fever chills systemic flulike symptoms, or spreading erythema. Patient encouraged to maintain compliance with his anticoagulation as well which he has been doing. Departure - Departure Disposition: 01 Home, Self Care Clinical Impression: Cellulitis of leg, left Condition: Good Instructions: ED Infec Skin Cellulitis Prescriptions: Mupirocin 2% Oint [Bactroban 2% Oint] 1 applic TOP BID #50 gm cephALEXin [Keflex] 500 mg PO Q6H #28 cap Doxycycline [Vibramycin] 100 mg PO BID #20 tablet Comments: Continue to do good wound care and keep leg elevated. Try to follow up in the wound care clinic. In the meantime, I have prescribed 2 antibiotics, and I would like you to take both of them simultaneously. We have collected a culture and if we need to change her antibiotics we will notify you. Medication sent to [facility] Forms: PCP List
[2024-05-07 14:32] VITALS: BP 133/72
== END 2024-05-07 14:51 | disposition home or self-care (01) ==
LOC: ED 11:51
DX: L03.116 Cellulitis of left lower limb (principal); F17.200 Nicotine dependence, unspecified, uncomplicated
CPT/HCPCS: 87070; 87077; 87181; 87205; 99283